=== PATIENT | female | born 1985 | race Asian ===

== ENCOUNTER 2019-08-23 13:08 | Emergency (ER) | payer MEDICAID ==
[~2019-08-23] VITALS: Ht 160 cm; Wt 48.3 kg
[2019-08-23 13:11] VITALS: Ht 160 cm; Wt 48.3 kg
[2019-08-23 14:03] VITALS: BP 102/69
== END 2019-08-23 14:06 | disposition home or self-care (01) ==
LOC: ED 13:08
DX: R05 Cough (principal); R06.02 Shortness of breath; J34.89 Other specified disorders of nose and nasal sinuses; R06.2 Wheezing
CPT/HCPCS: J7613; J7644